=== PATIENT | male | born 1975 | race Caucasian/White ===

== ENCOUNTER 2019-07-19 15:13 | Inpatient (IN) ==
[2019-07-19 16:19] LABS: Basophils # 0.1 10*3/uL (0.0-0.2); Basophils % 0.5 % (0.0-0.8); Eosinophils # 0.1 10*3/uL (0.0-0.87); Eosinophils % 0.8 % (0.00-10.9); Hematocrit 22.3 VOL% (42.0-52.0); Hemoglobin 7.6 GM/DL (14.0-18.0); Immature Granulocytes % 1.2 %; Immature Granulocytes Absolute 0.14 #; Lymphocytes # 1.3 10*3/uL (1.4-4.0); Lymphocytes % 11.3 % (21.2-54.2); Mean Corpuscular HGB Conc 34.1 GM/DL (32-36); Mean Corpuscular Volume 111.5 FL (87-102); Monocytes % 9.3 % (1.7-12.7); Neutrophils % 76.9 % (38.7-73.9); Platelet Count 100 T/CUMM (130-400); Red Cell Distribution Width 17.2 % (9.3-17.3); White Blood Count 11.3 T/CUMM (4-12)
[2019-07-19 16:28] LABS: INR 1.3; PT Patient Result 14.5 SECS (9.6-12.2)
[2019-07-19] MEDS ORDERED: FUROSEMIDE 40 MG/4 ML VIAL IV STA (16:30)
[2019-07-19 16:48] LABS: Alanine Aminotransferase 69 U/L (16-61); Albumin 2.1 G/DL (3.4-5.0); Alkaline Phosphatase 173 U/L (45-117); Aspartate Amino Transferase 211 U/L (0-37); Blood Urea Nitrogen 12 MG/DL (7-18); Calcium 7.5 MG/DL (8.5-10.1); Estimated Glom Filtration Rate 143 ML/MIN; Glucose 116 MG/DL (74-106); Osmolality,Calculated 277.5 MOS/KG (273-304); Total Protein 7.1 G/DL (6.4-8.3)
[2019-07-19] MEDS ORDERED: POTASSIUM CHLORIDE 20 MEQ TABLET PO STA (17:08)
[2019-07-19] MEDS ORDERED: cefTRIAXone 1,000 MG in SODIUM CHLORIDE 0.9% 100 ML IV STA (17:08)
[2019-07-19 18:43] LABS: Apearance,Urine Clear (Clear); Bilirubin,Urine 4 mg/dL (Negative); Blood, Urine Negative (Negative); Glucose,Urine (UA) Negative (Negative); Ketones,Urine Negative (Negative); Nitrite,Urine Negative (Negative); Protein,Urine Negative; RBC,Urine <1 /HPF (0-4); Squamous Epithelial Cell,Urine Occasional /HPF (0-10); Urine Specific Gravity 1.015 (1.001-1.035); Urine Urobilinogen 0.2 EU/DL (0.2-1.0); WBC,Urine 4 /HPF (0-6)
[2019-07-19 18:44] LABS: Bacteria,Urine Occasional /HPF (Few); Urine Color Dark Yellow (Yellow)
[2019-07-19 18:45] LABS: Barbiturates Screen,Urine Negative (Negative); Benzodiazepines Screen,Urine Positive (Negative); Cannabinoid Screen,Urine Negative (Negative); Opiate Screen,Urine Negative (Negative); Phencyclidine Screen,Urine Negative (Negative)
[2019-07-19] MEDS ORDERED: ONDANSETRON 4 MG/2 ML VIAL IV PRN (19:09)
[2019-07-19] MEDS ORDERED: ALBUTEROL/IPRATROPIUM 3 ML NEB RESP TX PRN (19:09)
[2019-07-19] MEDS ORDERED: LORazepam 2 MG/1 ML VIAL IV PRN (19:09)
[2019-07-19] MEDS ORDERED: MAGNESIUM SULF RIDER 2 GM in PREMIX 1 EACH IV PRN (19:09)
[2019-07-19] MEDS ORDERED: MAGNESIUM SULF RIDER 4 GM in PREMIX 1 EACH IV PRN (19:09)
[2019-07-19] MEDS ORDERED: LACTULOSE 20 GM/30 ML UDCUP PO ONE (19:20)
[2019-07-19] MEDS ORDERED: THIAMINE INJ 100 MG, FOLIC ACID INJ 1 MG, MAGNESIUM SULF INJ 2 GM, MULTIVITAMIN INJ 10 ... IV ONE (20:30)
[2019-07-19] MEDS: chlordiazePOXIDE 25 MG CAPSULE PO SCH (22:16)
[2019-07-19] MEDS: AZITHROMYCIN INJ 500 MG in SODIUM CHLORIDE 0.9% 250 ML IV SCH (22:51)
[2019-07-20 03:20] LABS: Basophils % 0.4 % (0.0-0.8); Eosinophils # 0.1 10*3/uL (0.0-0.87); Eosinophils % 0.7 % (0.00-10.9); Hematocrit 21.2 VOL% (42.0-52.0); Hemoglobin 7.2 GM/DL (14.0-18.0); Immature Granulocytes Absolute 0.11 #; Lymphocytes # 1.2 10*3/uL (1.4-4.0); Lymphocytes % 10.5 % (21.2-54.2); Mean Corpuscular Volume 111.6 FL (87-102); Mean Platelet Volume 10.7 FL (9.6-12.0); Monocytes % 7.9 % (1.7-12.7); Neutrophils % 79.5 % (38.7-73.9); Platelet Count 85 T/CUMM (130-400); Red Cell Distribution Width 17.2 % (9.3-17.3); White Blood Count 11.2 T/CUMM (4-12)
[2019-07-20 03:40] LABS: Calcium 7.4 MG/DL (8.5-10.1); Osmolality,Calculated 279.4 MOS/KG (273-304); Total Protein 6.6 G/DL (6.4-8.3)
[2019-07-20 03:44] LABS: Platelet Estimate Decreased
[2019-07-20 03:44] LABS: Bilirubin,Total 13.2 MG/DL (0.2-1.0)
[2019-07-20 03:45] LABS: Anisocytosis 1+; Hypochromasia 1+; Macrocytosis 2+; Polychromasia Slight; Target Cells 1+
[2019-07-20 03:46] LABS: Ovalocytes Few
[2019-07-20 03:47] LABS: Tear Drop Cells Slight
[2019-07-20 04:00] LABS: Folate 9.3 NG/ML (5.4-24.0)
[2019-07-20] MEDS: FUROSEMIDE 20 MG/2 ML VIAL IV SCH ×3 (07:17→15:06)
[2019-07-20] MEDS: SPIRONOLACTONE 25 MG TABLET PO SCH (08:59)
[2019-07-20] MEDS: MULTIVITAMIN (CENTRUM) TABLET PO SCH (09:00)
[2019-07-20] MEDS: FOLIC ACID 1 MG TABLET PO SCH (09:00)
[2019-07-20] MEDS: THIAMINE 200 MG/2 ML VIAL IV SCH (09:00)
[2019-07-20] MEDS: PANTOPRAZOLE 40 MG TABLET PO SCH (09:00)
[2019-07-20] MEDS: chlordiazePOXIDE 25 MG CAPSULE PO SCH ×3 (09:20→20:54)
[2019-07-20 12:02] LABS: Hepatitis B Core IgM Quant 0.27 Index; Hepatitis B Surface Ag Quant < 0.10 Index; Hepatitis B Surface Ag Result Negative (Negative); Hepatitis C Virus Ab Quant 0.14 Index; Hepatitis C Virus Ab Result Negative (Negative)
[2019-07-20 12:32] LABS: Folate 3.5 NG/ML (5.4-24.0); Vitamin B12 524 PG/ML (211-911)
[2019-07-20] MEDS: METOPROLOL SUCCINATE XL 100 MG TABLET PO SCH (12:34)
[2019-07-20 12:56] LABS: Basophils % 0.3 % (0.0-0.8); Eosinophils % 0.2 % (0.00-10.9); Hematocrit 21.3 VOL% (42.0-52.0); Hemoglobin 7.4 GM/DL (14.0-18.0); Immature Granulocytes % 1.3 %; Immature Granulocytes Absolute 0.15 #; Lymphocytes # 1.2 10*3/uL (1.4-4.0); Lymphocytes % 10.6 % (21.2-54.2); Mean Corpuscular HGB Conc 34.7 GM/DL (32-36); Mean Corpuscular Volume 111.5 FL (87-102); Mean Platelet Volume 10.8 FL (9.6-12.0); Monocytes % 6.7 % (1.7-12.7); Neutrophils % 80.9 % (38.7-73.9); Platelet Count 88 T/CUMM (130-400); Red Blood Count 1.91 MC/CUMM (3.8-5.5); Red Cell Distribution Width 17.2 % (9.3-17.3); White Blood Count 11.7 T/CUMM (4-12)
[2019-07-20 13:18] LABS: Platelet Estimate Decreased
[2019-07-20 13:19] LABS: Anisocytosis 2+; Macrocytosis 2+
[2019-07-20 13:20] LABS: Hypochromasia 1+; Poikilocytosis Slight
[2019-07-20 13:55] LABS: Sedimentation Rate-Westergren 125 MM/HR (0-15)
[2019-07-20] MEDS: LORazepam 2 MG/1 ML VIAL IV PRN ×2 (15:07→20:56)
[2019-07-20] MEDS: cefTRIAXone 1,000 MG in SYRINGE 1 EACH IV SCH (18:04)
[2019-07-20] MEDS: AZITHROMYCIN INJ 500 MG in SODIUM CHLORIDE 0.9% 250 ML IV SCH (20:52)
[2019-07-21] MEDS: LORazepam 2 MG/1 ML VIAL IV PRN ×3 (04:25→16:49)
[2019-07-21 05:50] LABS: Basophils % 0.3 % (0.0-0.8); Eosinophils # 0.1 10*3/uL (0.0-0.87); Eosinophils % 1.1 % (0.00-10.9); Hematocrit 20.1 VOL% (42.0-52.0); Hemoglobin 6.8 GM/DL (14.0-18.0); Immature Granulocytes % 1.1 %; Immature Granulocytes Absolute 0.12 #; Lymphocytes # 1.6 10*3/uL (1.4-4.0); Lymphocytes % 14.4 % (21.2-54.2); Mean Corpuscular HGB Conc 33.8 GM/DL (32-36); Mean Corpuscular Volume 112.3 FL (87-102); Mean Platelet Volume 11.5 FL (9.6-12.0); Monocytes % 7.7 % (1.7-12.7); Neutrophils % 75.4 % (38.7-73.9); Red Blood Count 1.79 MC/CUMM (3.8-5.5); Red Cell Distribution Width 17.7 % (9.3-17.3)
[2019-07-21 05:54] LABS: Platelet Count 84 T/CUMM (130-400)
[2019-07-21 06:08] LABS: Hypochromasia 1+
[2019-07-21 06:09] LABS: Macrocytosis Slight; Platelet Estimate Decreased; Target Cells Few
[2019-07-21 06:25] LABS: Albumin 1.9 G/DL (3.4-5.0); Bilirubin,Direct 10.68 MG/DL (0.0-0.20); Bilirubin,Indirect 6.2 MG/DL (0.0-1.0); Calcium 7.7 MG/DL (8.5-10.1); Osmolality,Calculated 280.4 MOS/KG (273-304); Total Protein 6.6 G/DL (6.4-8.3)
[2019-07-21 06:28] LABS: Bilirubin,Total 16.9 MG/DL (0.2-1.0)
[2019-07-21] MEDS ORDERED: SODIUM CHLORIDE 0.9% 1,000 ML IV PRN (08:10)
[2019-07-21] MEDS ORDERED: propofoL 200 MG/20 ML VIAL IV ONE (09:00)
[2019-07-21] MEDS ORDERED: LIDOCAINE 2% 5 ML VIAL ONE (09:00)
[2019-07-21] MEDS ORDERED: INFLUENZA VIRUS VACCINE 0.5 ML SYRINGE IM ONE (09:00)
[2019-07-21] MEDS: amLODIPine 5 MG TABLET PO SCH (09:53)
[2019-07-21] MEDS: chlordiazePOXIDE 25 MG CAPSULE PO SCH ×3 (09:53→21:50)
[2019-07-21] MEDS: FOLIC ACID 1 MG TABLET PO SCH (09:53)
[2019-07-21] MEDS: METOPROLOL SUCCINATE XL 100 MG TABLET PO SCH ×2 (09:53→14:28)
[2019-07-21] MEDS: MULTIVITAMIN (CENTRUM) TABLET PO SCH (09:53)
[2019-07-21] MEDS: SPIRONOLACTONE 25 MG TABLET PO SCH (09:53)
[2019-07-21] MEDS: PANTOPRAZOLE 40 MG TABLET PO SCH (09:53)
[2019-07-21 10:02] LABS: Hemoglobin A1 (Alkaline) 96.9 % (96.5-98.5)
[2019-07-21 10:03] LABS: Hemoglobin A2 (Alkaline) 3.1 % (1.5-3.5)
[2019-07-21] MEDS: FUROSEMIDE 20 MG/2 ML VIAL IV SCH ×2 (10:16→16:49)
[2019-07-21] MEDS: THIAMINE 200 MG/2 ML VIAL IV SCH (10:17)
[2019-07-21] MEDS: LACTATED RINGERS 1,000 ML IV SCH (11:19)
[2019-07-21] MEDS: cefTRIAXone 1,000 MG in SYRINGE 1 EACH IV SCH (17:27)
[2019-07-21 19:51] LABS: Hematocrit 23.9 VOL% (42.0-52.0); Hemoglobin 8.3 GM/DL (14.0-18.0)
[2019-07-22 05:54] LABS: Basophils # 0.1 10*3/uL (0.0-0.2); Basophils % 0.5 % (0.0-0.8); Eosinophils # 0.1 10*3/uL (0.0-0.87); Eosinophils % 1.3 % (0.00-10.9); Hematocrit 24.2 VOL% (42.0-52.0); Hemoglobin 8.4 GM/DL (14.0-18.0); Immature Granulocytes % 1.7 %; Immature Granulocytes Absolute 0.18 #; Lymphocytes # 1.5 10*3/uL (1.4-4.0); Mean Corpuscular HGB Conc 34.7 GM/DL (32-36); Mean Corpuscular Volume 105.2 FL (87-102); Mean Platelet Volume 11.5 FL (9.6-12.0); NRBC # 0.02 10*3/uL; Neutrophils % 75.5 % (38.7-73.9); Platelet Count 82 T/CUMM (130-400); Red Cell Distribution Width 21.6 % (9.3-17.3); White Blood Count 10.6 T/CUMM (4-12)
[2019-07-22 06:16] LABS: Hypochromasia 1+; Platelet Estimate Decreased
[2019-07-22 06:17] LABS: Macrocytosis Slight; Ovalocytes Slight
[2019-07-22 06:33] LABS: Albumin 1.8 G/DL (3.4-5.0); Bilirubin,Direct 12.52 MG/DL (0.0-0.20); Calcium 7.8 MG/DL (8.5-10.1); Osmolality,Calculated 282.4 MOS/KG (273-304); Total Protein 6.4 G/DL (6.4-8.3)
[2019-07-22 06:34] LABS: Bilirubin,Indirect 5.8 MG/DL (0.0-1.0); Bilirubin,Total 18.3 MG/DL (0.2-1.0)
[2019-07-22] MEDS: FUROSEMIDE 20 MG/2 ML VIAL IV SCH ×2 (10:05→16:42)
[2019-07-22] MEDS: SPIRONOLACTONE 25 MG TABLET PO SCH (10:08)
[2019-07-22] MEDS: FOLIC ACID 1 MG TABLET PO SCH (10:08)
[2019-07-22] MEDS: MULTIVITAMIN (CENTRUM) TABLET PO SCH (10:08)
[2019-07-22] MEDS: PANTOPRAZOLE 40 MG TABLET PO SCH (10:09)
[2019-07-22] MEDS: METOPROLOL SUCCINATE XL 100 MG TABLET PO SCH (10:09)
[2019-07-22] MEDS: THIAMINE 200 MG/2 ML VIAL IV SCH (10:11)
[2019-07-22] MEDS: amLODIPine 5 MG TABLET PO SCH (10:17)
[2019-07-22] MEDS: chlordiazePOXIDE 25 MG CAPSULE PO SCH ×3 (10:52→21:45)
[2019-07-22] MEDS: LACTATED RINGERS 1,000 ML IV SCH (10:53)
[2019-07-22] MEDS: LORazepam 2 MG/1 ML VIAL IV PRN ×2 (17:52→21:58)
[2019-07-22] MEDS: cefTRIAXone 1,000 MG in SYRINGE 1 EACH IV SCH (17:55)
[2019-07-23] MEDS: LORazepam 2 MG/1 ML VIAL IV PRN ×3 (02:35→21:57)
[2019-07-23] MEDS: LACTATED RINGERS 1,000 ML IV SCH (08:00)
[2019-07-23] MEDS: SPIRONOLACTONE 25 MG TABLET PO SCH (08:43)
[2019-07-23] MEDS: FUROSEMIDE 20 MG/2 ML VIAL IV SCH ×2 (08:43→16:52)
[2019-07-23] MEDS: PANTOPRAZOLE 40 MG TABLET PO SCH (08:44)
[2019-07-23] MEDS: METOPROLOL SUCCINATE XL 100 MG TABLET PO SCH (08:44)
[2019-07-23] MEDS: FOLIC ACID 1 MG TABLET PO SCH (08:44)
[2019-07-23] MEDS: amLODIPine 5 MG TABLET PO SCH (08:44)
[2019-07-23] MEDS: MULTIVITAMIN (CENTRUM) TABLET PO SCH (08:44)
[2019-07-23] MEDS: THIAMINE 200 MG/2 ML VIAL IV SCH (08:50)
[2019-07-23] MEDS: chlordiazePOXIDE 25 MG CAPSULE PO SCH ×3 (09:54→21:46)
[2019-07-23] MEDS: cefTRIAXone 1,000 MG in SYRINGE 1 EACH IV SCH (18:37)
[2019-07-23] MEDS ORDERED: LORazepam 2 MG/1 ML VIAL ONE (21:55)
[2019-07-24 05:21] LABS: Basophils % 0.4 % (0.0-0.8); Eosinophils # 0.1 10*3/uL (0.0-0.87); Hematocrit 24.2 VOL% (42.0-52.0); Hemoglobin 8.2 GM/DL (14.0-18.0); Immature Granulocytes % 1.5 %; Immature Granulocytes Absolute 0.17 #; Lymphocytes # 1.3 10*3/uL (1.4-4.0); Lymphocytes % 11.4 % (21.2-54.2); Mean Corpuscular HGB Conc 33.9 GM/DL (32-36); Mean Corpuscular Volume 107.1 FL (87-102); Mean Platelet Volume 11.4 FL (9.6-12.0); Neutrophils % 78.7 % (38.7-73.9); Platelet Count 75 T/CUMM (130-400); Red Blood Count 2.26 MC/CUMM (3.8-5.5); Red Cell Distribution Width 21.5 % (9.3-17.3)
[2019-07-24] MEDS: LORazepam 2 MG/1 ML VIAL IV PRN (05:26)
[2019-07-24 05:53] LABS: Lymphocytes 8 % (20-55); Nucleated Red Blood Cells 1 (0-5); Platelet Estimate Decreased; Segmented Neutrophils 86 % (50-85); Total Cells Counted 100
[2019-07-24 05:54] LABS: Hypochromasia 1+; Macrocytosis Slight; Target Cells Few
[2019-07-24 05:56] LABS: Albumin 1.9 G/DL (3.4-5.0); Bilirubin,Direct 12.39 MG/DL (0.0-0.20); Bilirubin,Indirect 5.1 MG/DL (0.0-1.0); Calcium 7.9 MG/DL (8.5-10.1); Total Protein 6.6 G/DL (6.4-8.3)
[2019-07-24 06:01] LABS: Bilirubin,Total 17.5 MG/DL (0.2-1.0)
[2019-07-24] MEDS: amLODIPine 5 MG TABLET PO SCH (08:44)
[2019-07-24] MEDS: PANTOPRAZOLE 40 MG TABLET PO SCH (08:44)
[2019-07-24] MEDS: METOPROLOL SUCCINATE XL 100 MG TABLET PO SCH (08:45)
[2019-07-24] MEDS: SPIRONOLACTONE 25 MG TABLET PO SCH (08:45)
[2019-07-24] MEDS: MULTIVITAMIN (CENTRUM) TABLET PO SCH (08:45)
[2019-07-24] MEDS: THIAMINE 200 MG/2 ML VIAL IV SCH (08:45)
[2019-07-24] MEDS: FOLIC ACID 1 MG TABLET PO SCH (08:45)
[2019-07-24] MEDS: FUROSEMIDE 20 MG/2 ML VIAL IV SCH (08:45)
[2019-07-24] MEDS: LACTATED RINGERS 1,000 ML IV SCH (08:46)
[2019-07-24] MEDS: LACTULOSE 20 GM/30 ML UDCUP PO SCH ×3 (09:40→20:05)
[2019-07-24] MEDS: chlordiazePOXIDE 25 MG CAPSULE PO SCH ×3 (09:40→20:06)
[2019-07-24] MEDS ORDERED: LORazepam 2 MG/1 ML VIAL IV PRN (10:20)
[2019-07-24] MEDS: POTASSIUM CHLORIDE 20 MEQ TABLET PO PRN ×4 (13:28→19:08)
[2019-07-24] MEDS: cefTRIAXone 1,000 MG in SYRINGE 1 EACH IV SCH (18:51)
[2019-07-25] MEDS: LACTULOSE 20 GM/30 ML UDCUP PO SCH ×4 (03:26→20:42)
[2019-07-25 05:57] LABS: Basophils % 0.3 % (0.0-0.8); Eosinophils # 0.1 10*3/uL (0.0-0.87); Eosinophils % 1.1 % (0.00-10.9); Hematocrit 23.8 VOL% (42.0-52.0); Hemoglobin 8.1 GM/DL (14.0-18.0); Immature Granulocytes % 1.4 %; Immature Granulocytes Absolute 0.17 #; Lymphocytes # 1.1 10*3/uL (1.4-4.0); Lymphocytes % 9.7 % (21.2-54.2); Mean Corpuscular Volume 109.2 FL (87-102); Mean Platelet Volume 11.2 FL (9.6-12.0); Monocytes % 8.5 % (1.7-12.7); Platelet Count 71 T/CUMM (130-400); Red Blood Count 2.18 MC/CUMM (3.8-5.5); Red Cell Distribution Width 21.6 % (9.3-17.3); White Blood Count 11.7 T/CUMM (4-12)
[2019-07-25 06:34] LABS: Albumin 1.7 G/DL (3.4-5.0); Bilirubin,Direct 12.94 MG/DL (0.0-0.20); Bilirubin,Indirect 4.9 MG/DL (0.0-1.0); Osmolality,Calculated 278.5 MOS/KG (273-304); Total Protein 6.6 G/DL (6.4-8.3)
[2019-07-25 06:38] LABS: Bilirubin,Total 17.8 MG/DL (0.2-1.0)
[2019-07-25 06:50] LABS: Eosinophils 2 % (0-10); Lymphocytes 5 % (20-55); Platelet Estimate Decreased; Segmented Neutrophils 86 % (50-85); Total Cells Counted 100
[2019-07-25 06:51] LABS: Anisocytosis 2+; Macrocytosis 1+
[2019-07-25 06:52] LABS: Hypochromasia 1+; Polychromasia Few; Target Cells 1+
[2019-07-25 06:53] LABS: Tear Drop Cells 1+
[2019-07-25] MEDS: amLODIPine 5 MG TABLET PO SCH (08:42)
[2019-07-25] MEDS: THIAMINE 200 MG/2 ML VIAL IV SCH (08:42)
[2019-07-25] MEDS: SPIRONOLACTONE 25 MG TABLET PO SCH (08:42)
[2019-07-25] MEDS: METOPROLOL SUCCINATE XL 100 MG TABLET PO SCH (08:42)
[2019-07-25] MEDS: PANTOPRAZOLE 40 MG TABLET PO SCH (08:42)
[2019-07-25] MEDS: MULTIVITAMIN (CENTRUM) TABLET PO SCH (08:42)
[2019-07-25] MEDS: FOLIC ACID 1 MG TABLET PO SCH (08:42)
[2019-07-25] MEDS: FUROSEMIDE 20 MG/2 ML VIAL IV SCH (08:42)
[2019-07-25] MEDS: LACTATED RINGERS 1,000 ML IV SCH (08:43)
[2019-07-25] MEDS: chlordiazePOXIDE 25 MG CAPSULE PO SCH ×3 (10:24→20:42)
[2019-07-25] MEDS: cefTRIAXone 1,000 MG in SYRINGE 1 EACH IV SCH (18:13)
[2019-07-26] MEDS: LACTULOSE 20 GM/30 ML UDCUP PO SCH ×4 (01:56→21:30)
[2019-07-26 05:25] LABS: Basophils # 0.1 10*3/uL (0.0-0.2); Basophils % 0.6 % (0.0-0.8); Eosinophils # 0.2 10*3/uL (0.0-0.87); Eosinophils % 1.5 % (0.00-10.9); Hematocrit 25.2 VOL% (42.0-52.0); Hemoglobin 8.4 GM/DL (14.0-18.0); Immature Granulocytes % 1.2 %; Immature Granulocytes Absolute 0.14 #; Lymphocytes # 1.3 10*3/uL (1.4-4.0); Lymphocytes % 11.2 % (21.2-54.2); Mean Corpuscular HGB Conc 33.3 GM/DL (32-36); Mean Corpuscular Volume 108.6 FL (87-102); Mean Platelet Volume 11.7 FL (9.6-12.0); Monocytes % 10.1 % (1.7-12.7); Neutrophils % 75.4 % (38.7-73.9); Platelet Count 70 T/CUMM (130-400); Red Blood Count 2.32 MC/CUMM (3.8-5.5); Red Cell Distribution Width 20.8 % (9.3-17.3); White Blood Count 11.4 T/CUMM (4-12)
[2019-07-26 05:44] LABS: Albumin 1.7 G/DL (3.4-5.0); Bilirubin,Direct 13.96 MG/DL (0.0-0.20); Calcium 8.3 MG/DL (8.5-10.1); Osmolality,Calculated 280.4 MOS/KG (273-304); Total Protein 6.3 G/DL (6.4-8.3)
[2019-07-26 06:05] LABS: Bilirubin,Indirect 4.8 MG/DL (0.0-1.0); Bilirubin,Total 18.8 MG/DL (0.2-1.0)
[2019-07-26 06:14] LABS: Platelet Estimate Decreased
[2019-07-26] MEDS: LACTATED RINGERS 1,000 ML IV SCH (09:52)
[2019-07-26] MEDS: FOLIC ACID 1 MG TABLET PO SCH (09:55)
[2019-07-26] MEDS: amLODIPine 5 MG TABLET PO SCH (09:55)
[2019-07-26] MEDS: PANTOPRAZOLE 40 MG TABLET PO SCH (09:55)
[2019-07-26] MEDS: SPIRONOLACTONE 25 MG TABLET PO SCH (09:55)
[2019-07-26] MEDS: MULTIVITAMIN (CENTRUM) TABLET PO SCH (09:55)
[2019-07-26] MEDS: METOPROLOL SUCCINATE XL 100 MG TABLET PO SCH (09:55)
[2019-07-26] MEDS: chlordiazePOXIDE 25 MG CAPSULE PO SCH ×3 (09:55→21:30)
[2019-07-26] MEDS: FUROSEMIDE 20 MG/2 ML VIAL IV SCH (09:56)
[2019-07-26] MEDS: THIAMINE 200 MG/2 ML VIAL IV SCH (09:56)
[2019-07-27] MEDS: LACTULOSE 20 GM/30 ML UDCUP PO SCH ×4 (02:40→21:10)
[2019-07-27 05:20] LABS: Basophils # 0.1 10*3/uL (0.0-0.2); Basophils % 0.6 % (0.0-0.8); Eosinophils # 0.2 10*3/uL (0.0-0.87); Eosinophils % 1.6 % (0.00-10.9); Hematocrit 23.8 VOL% (42.0-52.0); Hemoglobin 7.9 GM/DL (14.0-18.0); Immature Granulocytes % 2.1 %; Immature Granulocytes Absolute 0.23 #; Lymphocytes # 1.4 10*3/uL (1.4-4.0); Lymphocytes % 12.6 % (21.2-54.2); Mean Corpuscular HGB Conc 33.2 GM/DL (32-36); Mean Corpuscular Volume 108.7 FL (87-102); Mean Platelet Volume 11.5 FL (9.6-12.0); Monocytes % 10.7 % (1.7-12.7); Neutrophils % 72.4 % (38.7-73.9); Platelet Count 64 T/CUMM (130-400); Red Blood Count 2.19 MC/CUMM (3.8-5.5); Red Cell Distribution Width 20.2 % (9.3-17.3); White Blood Count 10.8 T/CUMM (4-12)
[2019-07-27 05:52] LABS: Hypochromasia 2+; Ovalocytes Slight; Platelet Estimate Decreased
[2019-07-27 06:03] LABS: Albumin 1.6 G/DL (3.4-5.0); Bilirubin,Direct 14.01 MG/DL (0.0-0.20); Bilirubin,Indirect 5.4 MG/DL (0.0-1.0); Osmolality,Calculated 280.5 MOS/KG (273-304); Total Protein 6.3 G/DL (6.4-8.3)
[2019-07-27 06:04] LABS: Bilirubin,Total 19.4 MG/DL (0.2-1.0)
[2019-07-27] MEDS: POTASSIUM CHLORIDE 20 MEQ TABLET PO PRN ×5 (06:53→14:04)
[2019-07-27] MEDS: MULTIVITAMIN (CENTRUM) TABLET PO SCH (09:30)
[2019-07-27] MEDS: THIAMINE 100 MG TABLET PO SCH (09:30)
[2019-07-27] MEDS: PANTOPRAZOLE 40 MG TABLET PO SCH (09:30)
[2019-07-27] MEDS: SPIRONOLACTONE 25 MG TABLET PO SCH (09:30)
[2019-07-27] MEDS: METOPROLOL SUCCINATE XL 100 MG TABLET PO SCH (09:30)
[2019-07-27] MEDS: FOLIC ACID 1 MG TABLET PO SCH (09:30)
[2019-07-27] MEDS: chlordiazePOXIDE 25 MG CAPSULE PO SCH ×2 (10:14→21:10)
[2019-07-27] MEDS: LACTATED RINGERS 1,000 ML IV SCH (11:01)
[2019-07-27 19:53] LABS: Calcium 8.4 MG/DL (8.5-10.1); Osmolality,Calculated 277.7 MOS/KG (273-304)
[2019-07-28] MEDS: LACTULOSE 20 GM/30 ML UDCUP PO SCH ×3 (02:59→14:58)
[2019-07-28 04:45] LABS: Basophils # 0.1 10*3/uL (0.0-0.2); Basophils % 0.6 % (0.0-0.8); Eosinophils # 0.2 10*3/uL (0.0-0.87); Eosinophils % 1.6 % (0.00-10.9); Hematocrit 25.3 VOL% (42.0-52.0); Hemoglobin 8.3 GM/DL (14.0-18.0); Immature Granulocytes % 1.5 %; Immature Granulocytes Absolute 0.15 #; Lymphocytes # 1.4 10*3/uL (1.4-4.0); Lymphocytes % 13.3 % (21.2-54.2); Mean Corpuscular HGB Conc 32.8 GM/DL (32-36); Mean Corpuscular Volume 109.1 FL (87-102); Mean Platelet Volume 11.5 FL (9.6-12.0); Monocytes % 10.7 % (1.7-12.7); Neutrophils % 72.3 % (38.7-73.9); Platelet Count 72 T/CUMM (130-400); Red Blood Count 2.32 MC/CUMM (3.8-5.5); Red Cell Distribution Width 19.5 % (9.3-17.3); White Blood Count 10.3 T/CUMM (4-12)
[2019-07-28 05:11] LABS: Band Neutrophils 1 % (0-10); Eosinophils 1 % (0-10); Lymphocytes 10 % (20-55); Segmented Neutrophils 84 % (50-85); Total Cells Counted 100
[2019-07-28 05:12] LABS: Hypochromasia 2+; Macrocytosis 1+; Target Cells Few
[2019-07-28 05:13] LABS: Platelet Estimate Decreased
[2019-07-28 05:24] LABS: Calcium 8.4 MG/DL (8.5-10.1); Osmolality,Calculated 281.4 MOS/KG (273-304)
[2019-07-28] MEDS: LACTATED RINGERS 1,000 ML IV SCH (08:45)
[2019-07-28] MEDS: METOPROLOL SUCCINATE XL 100 MG TABLET PO SCH (09:11)
[2019-07-28] MEDS: FOLIC ACID 1 MG TABLET PO SCH (09:11)
[2019-07-28] MEDS: PANTOPRAZOLE 40 MG TABLET PO SCH (09:11)
[2019-07-28] MEDS: SPIRONOLACTONE 25 MG TABLET PO SCH (09:11)
[2019-07-28] MEDS: THIAMINE 100 MG TABLET PO SCH (09:11)
[2019-07-28] MEDS: MULTIVITAMIN (CENTRUM) TABLET PO SCH (09:11)
[2019-07-28] MEDS: chlordiazePOXIDE 25 MG CAPSULE PO SCH (09:58)
[2019-07-28 12:27] VITALS: BP 98/52
== END 2019-07-28 14:55 | disposition home health service (06) | DRG 432 ==
LOC: EDUNIT# → EDBD → N.ED 15:13 → N.EDINP 19:09 → SUATTDRO 19:09 → N.3E 19:42
PROVIDERS: ADMIT Internal Medicine; ATTEND Internal Medicine Geriatric Medicine

== ENCOUNTER 2019-08-03 20:41 | Inpatient (IN) ==
[2019-08-03] MEDS ORDERED: SODIUM CHLORIDE 0.9% 1,000 ML IV STA (21:19)
[2019-08-03 21:28] LABS: Basophils # 0.1 10*3/uL (0.0-0.2); Basophils % 0.7 % (0.0-0.8); Eosinophils # 0.2 10*3/uL (0.0-0.87); Eosinophils % 1.1 % (0.00-10.9); Hematocrit 29.5 VOL% (42.0-52.0); Hemoglobin 9.7 GM/DL (14.0-18.0); Immature Granulocytes % 1.8 %; Immature Granulocytes Absolute 0.27 #; Lymphocytes # 1.7 10*3/uL (1.4-4.0); Lymphocytes % 11.9 % (21.2-54.2); Mean Corpuscular HGB Conc 32.9 GM/DL (32-36); Mean Corpuscular Volume 107.7 FL (87-102); Mean Platelet Volume 11.6 FL (9.6-12.0); Monocytes % 9.3 % (1.7-12.7); Neutrophils % 75.2 % (38.7-73.9); Platelet Count 136 T/CUMM (130-400); Red Blood Count 2.74 MC/CUMM (3.8-5.5); Red Cell Distribution Width 17.9 % (9.3-17.3); White Blood Count 14.7 T/CUMM (4-12)
[2019-08-03 21:37] LABS: INR 1.6; PT Patient Result 17.3 SECS (9.6-12.2); Partial Thromboplastin Time 33.4 SECS (20.8-36.0)
[2019-08-03 21:48] LABS: Albumin 1.8 G/DL (3.4-5.0); Osmolality,Calculated 291.4 MOS/KG (273-304); Total Protein 7.6 G/DL (6.4-8.3)
[2019-08-03 21:50] LABS: Bilirubin,Total 24.6 MG/DL (0.2-1.0)
[2019-08-04] MEDS ORDERED: ALBUTEROL/IPRATROPIUM 3 ML NEB RESP TX PRN (01:56)
[2019-08-04] MEDS ORDERED: ALBUTEROL 2.5 MG/3 ML NEB RESP TX PRN (01:56)
[2019-08-04] MEDS ORDERED: ONDANSETRON 4 MG/2 ML VIAL IV PRN (01:56)
[2019-08-04] MEDS ORDERED: PIPERACILLIN/TAZOBACTAM 3,375 MG in SODIUM CHLORIDE 0.9% 100 ML IV SCH (02:30)
[2019-08-04] MEDS ORDERED: NOREPINEPHRINE 4 MG/4 ML VIAL IV ONE ×3 (03:35→13:18)
[2019-08-04 03:47] LABS: Apearance,Urine CLEAR (Clear); Bacteria,Urine Few /HPF (Few); Bilirubin,Urine Moderate mg/dL (Negative); Blood, Urine Small mg/dL (Negative); Glucose,Urine (UA) Negative (Negative); Hyaline Casts,Urine 1 /LPF (0-3); Ketones,Urine Negative (Negative); Mucus,Urine Occasional /LPF (Occasional); Nitrite,Urine Negative (Negative); Protein,Urine Negative; RBC,Urine <1 /HPF (0-4); Squamous Epithelial Cell,Urine Occasional /HPF (0-10); Urine Color Amber (Yellow); Urine Specific Gravity 1.013 (1.001-1.035); WBC,Urine 2 /HPF (0-6)
[2019-08-04] MEDS: NOREPINEPHRINE 8 MG in SODIUM CHLORIDE 0.9% 242 ML IV PRN ×3 (03:59→20:30)
[2019-08-04] MEDS: LACTULOSE 20 GM/30 ML UDCUP PO SCH ×2 (03:59→09:07)
[2019-08-04 05:15] LABS: Basophils # 0.1 10*3/uL (0.0-0.2); Basophils % 0.6 % (0.0-0.8); Eosinophils # 0.2 10*3/uL (0.0-0.87); Eosinophils % 0.9 % (0.00-10.9); Hematocrit 25.7 VOL% (42.0-52.0); Hemoglobin 8.4 GM/DL (14.0-18.0); Immature Granulocytes % 1.4 %; Immature Granulocytes Absolute 0.25 #; Lymphocytes # 1.6 10*3/uL (1.4-4.0); Mean Corpuscular HGB Conc 32.7 GM/DL (32-36); Mean Corpuscular Volume 107.1 FL (87-102); Mean Platelet Volume 11.7 FL (9.6-12.0); Monocytes % 11.9 % (1.7-12.7); Neutrophils % 76.2 % (38.7-73.9); Platelet Count 154 T/CUMM (130-400); Red Cell Distribution Width 17.8 % (9.3-17.3); White Blood Count 17.6 T/CUMM (4-12)
[2019-08-04] MEDS: ALBUMIN 25% 25 GM in PREMIX 1 EACH IV SCH ×4 (05:15→22:15)
[2019-08-04 05:26] LABS: Albumin 1.7 G/DL (3.4-5.0); Calcium 7.7 MG/DL (8.5-10.1); Osmolality,Calculated 289.3 MOS/KG (273-304)
[2019-08-04] MEDS: LEVOFLOXACIN INJ 750 MG in PREMIX 1 EACH IV SCH (08:00)
[2019-08-04] MEDS: FUROSEMIDE 40 MG/4 ML VIAL IV SCH ×2 (09:45→18:13)
[2019-08-04] MEDS: prednisoLONE 15 MG/5 ML ORAL.SYR PO SCH (11:46)
[2019-08-04] MEDS: LACTULOSE 20 GM/30 ML UDCUP NG SCH ×3 (14:30→23:58)
[2019-08-04] MEDS ORDERED: INFLUENZA VIRUS VACCINE 0.5 ML SYRINGE IM ONE (15:28)
[2019-08-04] MEDS ORDERED: PNEUMOCOCCAL VACCINE (23 VALENT) 0.5 ML VIAL IM ONE (15:31)
[2019-08-04] MEDS: PIPERACILLIN/TAZOBACTAM 3,375 MG in SODIUM CHLORIDE 0.9% 100 ML IV SCH (15:52)
[2019-08-04] MEDS ORDERED: ALBUMIN 25% 25 GM in PREMIX 1 EACH IV ONE (18:00)
[2019-08-05] MEDS: PIPERACILLIN/TAZOBACTAM 3,375 MG in SODIUM CHLORIDE 0.9% 100 ML IV SCH ×2 (01:58→14:33)
[2019-08-05] MEDS: ALBUMIN 25% 25 GM in PREMIX 1 EACH IV SCH ×4 (01:59→20:01)
[2019-08-05 05:05] LABS: Basophils % 0.1 % (0.0-0.8); Eosinophils % 0.1 % (0.00-10.9); Hematocrit 20.8 VOL% (42.0-52.0); Hemoglobin 6.8 GM/DL (14.0-18.0); Immature Granulocytes % 0.8 %; Immature Granulocytes Absolute 0.12 #; Lymphocytes # 1.1 10*3/uL (1.4-4.0); Lymphocytes % 7.8 % (21.2-54.2); Mean Corpuscular HGB Conc 32.7 GM/DL (32-36); Mean Corpuscular Volume 107.2 FL (87-102); Mean Platelet Volume 11.7 FL (9.6-12.0); Monocytes % 9.9 % (1.7-12.7); Neutrophils % 81.3 % (38.7-73.9); Red Blood Count 1.94 MC/CUMM (3.8-5.5); Red Cell Distribution Width 17.8 % (9.3-17.3); White Blood Count 14.2 T/CUMM (4-12)
[2019-08-05 05:08] LABS: Platelet Count 104 T/CUMM (130-400)
[2019-08-05 05:23] LABS: Albumin 3.1 G/DL (3.4-5.0); Calcium 8.3 MG/DL (8.5-10.1); Osmolality,Calculated 299.7 MOS/KG (273-304); Total Protein 7.6 G/DL (6.4-8.3)
[2019-08-05] MEDS: LACTULOSE 20 GM/30 ML UDCUP NG SCH ×3 (05:27→17:56)
[2019-08-05] MEDS: NOREPINEPHRINE 8 MG in SODIUM CHLORIDE 0.9% 242 ML IV PRN (05:27)
[2019-08-05 05:29] LABS: Hypochromasia 1+; Ovalocytes Slight; Platelet Estimate Decreased
[2019-08-05 05:40] LABS: Bilirubin,Total 24.7 MG/DL (0.2-1.0)
[2019-08-05] MEDS: POTASSIUM CHLORIDE RIDER 10 MEQ in PREMIX 1 EACH IV PRN ×2 (06:35→09:05)
[2019-08-05] MEDS: FUROSEMIDE 40 MG/4 ML VIAL IV SCH ×2 (09:01→17:54)
[2019-08-05] MEDS: prednisoLONE 15 MG/5 ML ORAL.SYR PO SCH (09:13)
[2019-08-05] MEDS ORDERED: DEXTROSE 10% 25 GM/250 ML BAG IV PRN (14:08)
[2019-08-05] MEDS ORDERED: GLUCAGON 1 MG VIAL IM PRN (14:08)
[2019-08-05] MEDS ORDERED: IBUPROFEN 100 MG/5 ML UDCUP PO PRN (17:47)
[2019-08-05] MEDS: INSULIN REGULAR 100 UNIT/ML SUBCUT SCH (18:16)
[2019-08-06] MEDS: LACTULOSE 20 GM/30 ML UDCUP NG SCH ×4 (01:41→18:27)
[2019-08-06] MEDS: INSULIN REGULAR 100 UNIT/ML SUBCUT SCH ×4 (01:42→18:28)
[2019-08-06] MEDS: ALBUMIN 25% 25 GM in PREMIX 1 EACH IV SCH ×4 (02:50→22:57)
[2019-08-06] MEDS: PIPERACILLIN/TAZOBACTAM 3,375 MG in SODIUM CHLORIDE 0.9% 100 ML IV SCH (03:51)
[2019-08-06 04:42] LABS: Basophils % 0.1 % (0.0-0.8); Immature Granulocytes % 0.8 %; Lymphocytes # 0.8 10*3/uL (1.4-4.0); Lymphocytes % 6.5 % (21.2-54.2); Mean Corpuscular HGB Conc 31.3 GM/DL (32-36); Mean Corpuscular Volume 108.5 FL (87-102); Mean Platelet Volume 11.6 FL (9.6-12.0); Monocytes % 8.7 % (1.7-12.7); Neutrophils % 83.9 % (38.7-73.9); Platelet Count 79 T/CUMM (130-400); Red Blood Count 1.53 MC/CUMM (3.8-5.5); Red Cell Distribution Width 17.9 % (9.3-17.3); White Blood Count 11.9 T/CUMM (4-12)
[2019-08-06 04:48] LABS: Hemoglobin 5.2 GM/DL (14.0-18.0)
[2019-08-06 04:49] LABS: Hematocrit 16.6 VOL% (42.0-52.0)
[2019-08-06] MEDS ORDERED: SODIUM CHLORIDE 0.9% 1,000 ML IV PRN (05:12)
[2019-08-06 05:22] LABS: Albumin 3.5 G/DL (3.4-5.0); Calcium 8.5 MG/DL (8.5-10.1); Osmolality,Calculated 309.3 MOS/KG (273-304); Total Protein 7.3 G/DL (6.4-8.3)
[2019-08-06 05:24] LABS: Lymphocytes 5 % (20-55); Segmented Neutrophils 84 % (50-85); Total Cells Counted 100
[2019-08-06 05:25] LABS: Anisocytosis 1+; Macrocytosis 1+; Target Cells Few
[2019-08-06 05:26] LABS: Hypochromasia 1+
[2019-08-06 05:28] LABS: Prealbumin 7.4 MG/DL (20-40)
[2019-08-06] MEDS: LEVOFLOXACIN INJ 750 MG in PREMIX 1 EACH IV SCH (05:35)
[2019-08-06 05:41] LABS: Bilirubin,Total 23.3 MG/DL (0.2-1.0)
[2019-08-06] MEDS: FUROSEMIDE 40 MG/4 ML VIAL IV SCH (08:45)
[2019-08-06] MEDS: MULTIVITAMIN (CENTRUM) TABLET PO SCH (08:47)
[2019-08-06] MEDS: THIAMINE 100 MG TABLET PO SCH (08:47)
[2019-08-06] MEDS: FOLIC ACID 1 MG TABLET PO SCH (08:48)
[2019-08-06] MEDS: prednisoLONE 15 MG/5 ML ORAL.SYR PO SCH (08:48)
[2019-08-06] MEDS: POTASSIUM CHLORIDE RIDER 10 MEQ in PREMIX 1 EACH IV PRN ×2 (08:50→10:02)
[2019-08-06] MEDS ORDERED: AZITHROMYCIN INJ 500 MG in SODIUM CHLORIDE 0.9% 250 ML IV SCH (10:30)
[2019-08-06 11:51] LABS: Hematocrit 16.6 VOL% (42.0-52.0); Hemoglobin 5.2 GM/DL (14.0-18.0)
[2019-08-06] MEDS ORDERED: LEVOFLOXACIN INJ 750 MG in PREMIX 1 EACH IV SCH (12:00)
[2019-08-06 22:25] LABS: Hemoglobin 6.7 GM/DL (14.0-18.0)
[2019-08-07] MEDS: INSULIN REGULAR 100 UNIT/ML SUBCUT SCH ×3 (00:01→12:47)
[2019-08-07] MEDS: LACTULOSE 20 GM/30 ML UDCUP NG SCH ×3 (00:01→12:48)
[2019-08-07] MEDS ORDERED: SODIUM CHLORIDE 0.9% 1,000 ML IV PRN ×2 (00:15→00:19)
[2019-08-07] MEDS: ALBUMIN 25% 25 GM in PREMIX 1 EACH IV SCH (05:50)
[2019-08-07 08:24] LABS: Eosinophils % 0.1 % (0.00-10.9); Hematocrit 22.3 VOL% (42.0-52.0); Hemoglobin 7.2 GM/DL (14.0-18.0); Immature Granulocytes % 1.8 %; Immature Granulocytes Absolute 0.21 #; Lymphocytes # 0.7 10*3/uL (1.4-4.0); Lymphocytes % 5.8 % (21.2-54.2); Mean Corpuscular HGB Conc 32.3 GM/DL (32-36); Mean Corpuscular Volume 101.4 FL (87-102); Mean Platelet Volume 11.8 FL (9.6-12.0); Monocytes % 9.7 % (1.7-12.7); Neutrophils % 82.6 % (38.7-73.9); Red Cell Distribution Width 20.1 % (9.3-17.3); White Blood Count 11.4 T/CUMM (4-12)
[2019-08-07 08:25] LABS: Platelet Count 78 T/CUMM (130-400)
[2019-08-07 08:43] LABS: Albumin 3.9 G/DL (3.4-5.0); Calcium 8.9 MG/DL (8.5-10.1); Osmolality,Calculated 313.1 MOS/KG (273-304); Total Protein 7.9 G/DL (6.4-8.3)
[2019-08-07 08:47] LABS: Bilirubin,Total 21.5 MG/DL (0.2-1.0)
[2019-08-07] MEDS: FOLIC ACID 1 MG TABLET PO SCH (08:49)
[2019-08-07] MEDS: FUROSEMIDE 40 MG/4 ML VIAL IV SCH (08:49)
[2019-08-07] MEDS: MULTIVITAMIN (CENTRUM) TABLET PO SCH (08:49)
[2019-08-07 08:52] LABS: Hypochromasia 2+; Macrocytosis 1+
[2019-08-07] MEDS: THIAMINE 100 MG TABLET PO SCH (08:52)
[2019-08-07 08:53] LABS: Platelet Estimate Decreased; Target Cells Few
[2019-08-07 10:46] LABS: Hemoglobin 7.2 GM/DL (14.0-18.0)
[2019-08-07] MEDS: prednisoLONE 15 MG/5 ML ORAL.SYR PO SCH (12:46)
[2019-08-07] MEDS: MORPHINE 4 MG/1 ML VIAL IV PRN ×2 (15:51→19:35)
[2019-08-07] MEDS ORDERED: LORazepam 2 MG/1 ML VIAL IV PRN (23:30)
[2019-08-08] MEDS ORDERED: LEVOFLOXACIN INJ 750 MG in PREMIX 1 EACH IV SCH (06:30)
[2019-08-08 06:42] LABS: Basophils % 0.1 % (0.0-0.8); Hematocrit 24.9 VOL% (42.0-52.0); Hemoglobin 7.8 GM/DL (14.0-18.0); Immature Granulocytes % 2.9 %; Immature Granulocytes Absolute 0.61 #; Lymphocytes % 4.6 % (21.2-54.2); Mean Corpuscular HGB Conc 31.3 GM/DL (32-36); Mean Platelet Volume 12.1 FL (9.6-12.0); NRBC # 0.05 10*3/uL; Neutrophils % 81.4 % (38.7-73.9); Platelet Count 89 T/CUMM (130-400); Red Blood Count 2.35 MC/CUMM (3.8-5.5); Red Cell Distribution Width 20.8 % (9.3-17.3); White Blood Count 20.9 T/CUMM (4-12)
[2019-08-08 06:59] LABS: Albumin 3.6 G/DL (3.4-5.0); Calcium 8.7 MG/DL (8.5-10.1); Osmolality,Calculated 316.1 MOS/KG (273-304); Total Protein 7.7 G/DL (6.4-8.3)
[2019-08-08 07:07] LABS: Bilirubin,Total 23.1 MG/DL (0.2-1.0)
[2019-08-08 07:08] LABS: Lymphocytes 6 % (20-55); Segmented Neutrophils 91 % (50-85); Total Cells Counted 100
[2019-08-08 07:09] LABS: Anisocytosis 1+; Hypochromasia 2+; Macrocytosis 2+; Platelet Estimate Decreased; Polychromasia Slight; Target Cells 1+
[2019-08-08 07:10] LABS: Ovalocytes Slight; Tear Drop Cells Few
[2019-08-08] MEDS: FUROSEMIDE 40 MG/4 ML VIAL IV SCH (09:50)
[2019-08-08] MEDS: MORPHINE 4 MG/1 ML VIAL IV PRN (09:50)
[2019-08-08 16:02] VITALS: BP 77/35
== END 2019-08-08 20:32 | disposition expired | DRG 441 ==
LOC: N.ED 20:41 → SUATTDRO 23:34 → N.EDINP 23:34 → N.ICU 08-04 14:45 → N.5E 08-06 17:49
PROVIDERS: ADMIT Internal Medicine; ATTEND Internal Medicine